=== PATIENT | male | born 1980 | race American Indian/Alaskan Native ===

== ENCOUNTER 2023-11-06 16:22 | Outpatient (REF) | payer MEDICARE, MEDICAID, SELFPAY ==
[2023-11-06 21:53] LABS: Hemoglobin A1C 5.5 % (<5.7)
[2023-11-06 22:11] LABS: ALT 28 U/L (16-63); Alkaline Phosphatase 66 U/L (46-116); Anion Gap 9.2 mmol/L (3-11); BUN 15 mg/dL (7-18); CO2 25.8 mmol/L (21.0-32.0); CREATININE 1.1 mg/dL (0.70-1.30); Calcium 9.2 mg/dL (8.5-10.1); Chloride 105 mmol/L (98-107); Estimated GFR 85.42 (mL/min/1.73m2); Glucose 114 mg/dL (74-106); Potassium 4.1 mmol/L (3.5-5.1); Sodium 140 mmol/L (136-145); TSH (W/Ref FT4) 4.47 uIU/mL (0.36-3.74); Total Protein 7.4 g/dL (6.4-8.2)
[2023-11-06 22:43] LABS: AST 19 U/L (15-37)
== END 2023-11-06 16:23 | disposition home or self-care (01) ==
LOC: NCHCN 16:22
PROVIDERS: PCP Family Medicine; Visit Provider Family Medicine
DX: R53.83 Other fatigue (principal); R74.8 Abnormal levels of other serum enzymes
CPT/HCPCS: 80053; 83036; 84439; 84443

== ENCOUNTER 2024-05-07 16:36 | Outpatient (REF) | payer MEDICARE, MEDICAID, SELFPAY ==
[2024-05-07 16:30] LABS: TSH (W/Ref FT4) 2.59 uIU/mL (0.36-3.74)
[2024-05-07 17:53] LABS: Hemoglobin A1C 5.4 % (<5.7)
== END 2024-05-07 16:37 | disposition home or self-care (01) ==
LOC: NCHCN 16:36
PROVIDERS: PCP Family Medicine; Visit Provider Family Medicine
DX: Z13.1 Encounter for screening for diabetes mellitus (principal); E02 Subclinical iodine-deficiency hypothyroidism
CPT/HCPCS: 83036; 84443

== ENCOUNTER 2025-01-12 20:54 | Outpatient (REF) | payer MEDICARE, SELFPAY ==
[2025-01-12 22:04] LABS: Cholesterol 197 mg/dL (<200); HDL Cholesterol 46 mg/dL (>or=40); TSH (W/Ref FT4) 4.13 uIU/mL (0.36-3.74)
== END 2025-01-12 20:55 | disposition home or self-care (01) ==
LOC: NCHCN 20:54
PROVIDERS: PCP Family Medicine; Visit Provider Family Medicine
DX: Z13.220 Encounter for screening for lipoid disorders (principal); E03.8 Other specified hypothyroidism
CPT/HCPCS: 80061; 84439; 84443